=== PATIENT | male | born 1955 | race Caucasian/White ===

== ENCOUNTER → 2017-04-29 | Outpatient (CLI) | payer BC ==
[2014-05-15 10:16] VITALS: BP 123/56
[~2017-04-29] MED LIST: ACTOS45 MG PO; DEPO-TESTOS200 MG/M1 IM; DIOVAN 80MG80 MG PO; GOOD SENSE ASPI81 M1 PO; PLAVIX 75MG TAB75 MG PO; VIAGRA100 MG PO; ZOCOR 40MG40 MG PO
== END ==
LOC: LAB 09:01
DX: Z00.00 Encounter for general adult medical examination without abnormal findings (principal); Z12.5 Encounter for screening for malignant neoplasm of prostate

== ENCOUNTER → 2017-05-18 | Day surgery (SDC) | payer BC ==
[2014-05-15 10:16] VITALS: BP 123/56
== END ==
LOC: MSO 07:18
DX: Z12.11 Encounter for screening for malignant neoplasm of colon (principal); I25.10 Atherosclerotic heart disease of native coronary artery without angina pectoris; Z95.5 Presence of coronary angioplasty implant and graft; Z87.891 Personal history of nicotine dependence; J44.9 Chronic obstructive pulmonary disease, unspecified; E11.8 Type 2 diabetes mellitus with unspecified complications; Z79.84 Long term (current) use of oral hypoglycemic drugs; Z79.82 Long term (current) use of aspirin
CPT/HCPCS: 00810; G0121; J7030

== ENCOUNTER → 2018-03-08 | Outpatient (CLI) | payer MEDICARE, BC ==
[2014-05-15 10:16] VITALS: BP 123/56
[2018-03-08 09:04] LABS: BASO # 0.1 (0.02-0.10); EOS # 0.2 (0.04-0.40); EOS % 3.4 % (0.0-4.0); HEMATOCRIT 44.2 % (42.0-52.0); HEMOGLOBIN 14.6 g/dL (13.5-18.0); MEAN CELL VOLUME 95 fl (78-100); MEAN CORPUSCULAR HEMOGLOBIN 31 pg (27-31); MEAN CORPUSCULAR HGB CONC 33 g/dL (33-37); MONO # 0.4 (0.20-0.80); NEU # 2.8 (1.40-6.50); PLATELET COUNT 197 K/mm3 (130-400); RED BLOOD COUNT 4.66 M/mm3 (4.20-5.60); RED CELL DISTRIBUTION WIDTH 13.1 % (11.5-14.5); WHITE BLOOD COUNT 4.5 K/mm3 (4.8-10.8)
[2018-03-08 09:19] LABS: ALBUMIN 4.3 g/dL (3.5-5.0); BUN/CREATININE RATIO 17.4 (6.0-26.0); POTASSIUM 4.6 mmol/L (3.6-5.0); TOTAL BILIRUBIN 0.3 mg/dL (0.2-1.3); TOTAL PROTEIN 7.6 g/dL (6.3-8.2)
[2018-03-08 11:16] LABS: ERYTHROCYTE SEDIMENTATION RATE 3 mm/hr (0-20); URINE APPEARANCE CLEAR; URINE BILIRUBIN NEGATIVE (NEGATIVE); URINE BLOOD NEGATIVE (NEGATIVE); URINE COLOR YELLOW; URINE GLUCOSE NEGATIVE (NEGATIVE); URINE KETONE NEGATIVE (NEGATIVE); URINE LEUKOCYTE ESTERASE NEGATIVE (NEGATIVE); URINE NITRATE NEGATIVE (NEGATIVE); URINE PROTEIN(semi-quant) NEGATIVE (NEGATIVE); URINE UROBILINOGEN NORMAL (NORMAL); URINE WBC 0-1 /hpf (0-3)
[2018-03-09 00:52] LABS: TESTOSTERONE 419 ng/dL (221-716)
[2018-03-09 01:30] LABS: CREATININE OTHER SOURCE 32 mg/dL (())
== END ==
LOC: LAB 08:36
PROVIDERS: Internal Medicine
DX: Z00.00 Encounter for general adult medical examination without abnormal findings (principal); Z12.5 Encounter for screening for malignant neoplasm of prostate

== ENCOUNTER → 2018-06-01 | Outpatient (CLI) | payer BC ==
[2014-05-15 10:16] VITALS: BP 123/56
== END ==
LOC: RAD 08:05
DX: M19.012 Primary osteoarthritis, left shoulder (principal); M25.511 Pain in right shoulder

== ENCOUNTER → 2018-06-07 | Outpatient (CLI) | payer BC ==
[2014-05-15 10:16] VITALS: BP 123/56
== END ==
LOC: RAD 14:43
DX: S43.431A Superior glenoid labrum lesion of right shoulder, initial encounter (principal); E11.9 Type 2 diabetes mellitus without complications

== ENCOUNTER → 2018-09-24 | Outpatient (CLI) | payer BC ==
[2014-05-15 10:16] VITALS: BP 123/56
[2018-09-24 10:14] LABS: URINE APPEARANCE CLEAR; URINE BILIRUBIN NEGATIVE (NEGATIVE); URINE BLOOD NEGATIVE (NEGATIVE); URINE COLOR YELLOW; URINE GLUCOSE NEGATIVE (NEGATIVE); URINE KETONE NEGATIVE (NEGATIVE); URINE LEUKOCYTE ESTERASE NEGATIVE (NEGATIVE); URINE MUCUS PRESENT (NOT PRESENT); URINE NITRATE NEGATIVE (NEGATIVE); URINE PROTEIN(semi-quant) TRACE mg/dL (NEGATIVE); URINE UROBILINOGEN NORMAL (NORMAL); URINE WBC 0-1 /hpf (0-3)
== END ==
LOC: LAB 08:50
PROVIDERS: Internal Medicine
DX: R30.0 Dysuria (principal)

== ENCOUNTER → 2019-05-02 | Outpatient (CLI) | payer BC ==
[2014-05-15 10:16] VITALS: BP 123/56
[2019-05-02 08:02] LABS: EOS # 0.2 (0.04-0.40); EOS % 3.6 % (0.0-4.0); HEMATOCRIT 44.4 % (42.0-52.0); HEMOGLOBIN 14.7 g/dL (13.5-18.0); LYMPH# 1.2 (1.50-4.00); MEAN CELL VOLUME 96 fl (78-100); MEAN CORPUSCULAR HEMOGLOBIN 32 pg (27-31); MEAN CORPUSCULAR HGB CONC 33 g/dL (33-37); MEAN PLATELET VOLUME 8.9 fl (7.4-10.4); MONO # 0.6 (0.20-0.80); NEU # 3.2 (1.40-6.50); PLATELET COUNT 216 K/mm3 (130-400); RED BLOOD COUNT 4.64 M/mm3 (4.20-5.60); RED CELL DISTRIBUTION WIDTH 12.8 % (11.5-14.5); WHITE BLOOD COUNT 5.2 K/mm3 (4.8-10.8)
[2019-05-02 08:04] LABS: POTASSIUM 5.2 mmol/L (3.5-5.1)
[2019-05-02 08:05] LABS: ALBUMIN 4.2 g/dL (3.4-4.8)
[2019-05-02 08:06] LABS: CALCIUM 9.4 mg/dL (8.3-10.5)
[2019-05-02 08:07] LABS: TOTAL PROTEIN 7.3 g/dL (6.2-8.1)
[2019-05-02 08:09] LABS: TOTAL BILIRUBIN 0.4 mg/dL (0.2-1.2)
[2019-05-02 08:55] LABS: URINE APPEARANCE CLEAR; URINE BILIRUBIN NEGATIVE (NEGATIVE); URINE BLOOD NEGATIVE (NEGATIVE); URINE COLOR YELLOW; URINE GLUCOSE NEGATIVE (NEGATIVE); URINE KETONE NEGATIVE (NEGATIVE); URINE LEUKOCYTE ESTERASE NEGATIVE (NEGATIVE); URINE MUCUS PRESENT (NOT PRESENT); URINE NITRATE NEGATIVE (NEGATIVE); URINE PROTEIN(semi-quant) TRACE mg/dL (NEGATIVE); URINE UROBILINOGEN NORMAL (NORMAL)
[2019-05-02 09:06] LABS: ERYTHROCYTE SEDIMENTATION RATE 5 mm/hr (0-20)
== END ==
LOC: LAB 07:42
PROVIDERS: Internal Medicine
DX: Z00.00 Encounter for general adult medical examination without abnormal findings (principal); Z12.5 Encounter for screening for malignant neoplasm of prostate

== ENCOUNTER → 2020-05-04 | Outpatient (CLI) | payer BC ==
[2014-05-15 10:16] VITALS: BP 123/56
[2020-05-04 08:27] LABS: EOS # 0.2 (0.04-0.40); EOS % 3.6 % (0.0-4.0); HEMATOCRIT 42.2 % (42.0-52.0); LYMPH# 1.1 (1.50-4.00); MEAN CELL VOLUME 96 fl (78-100); MEAN CORPUSCULAR HEMOGLOBIN 32 pg (27-31); MEAN CORPUSCULAR HGB CONC 33 g/dL (33-37); MEAN PLATELET VOLUME 9.1 fl (7.4-10.4); MONO # 0.5 (0.20-0.80); NEU # 2.7 (1.40-6.50); PLATELET COUNT 212 K/mm3 (130-400); RED BLOOD COUNT 4.39 M/mm3 (4.20-5.60); WHITE BLOOD COUNT 4.5 K/mm3 (4.8-10.8)
[2020-05-04 08:28] LABS: POTASSIUM 5.4 mmol/L (3.5-5.1)
[2020-05-04 08:29] LABS: ALBUMIN 4.1 g/dL (3.4-4.8)
[2020-05-04 08:30] LABS: CALCIUM 8.5 mg/dL (8.3-10.5)
[2020-05-04 08:31] LABS: TOTAL PROTEIN 7.3 g/dL (6.2-8.1)
[2020-05-04 08:33] LABS: TOTAL BILIRUBIN 0.4 mg/dL (0.2-1.2)
[2020-05-04 10:43] LABS: ERYTHROCYTE SEDIMENTATION RATE 7 mm/hr (0-20); URINE APPEARANCE CLEAR; URINE COLOR YELLOW
[2020-05-04 10:44] LABS: URINE BILIRUBIN NEGATIVE (NEGATIVE); URINE BLOOD NEGATIVE (NEGATIVE); URINE GLUCOSE NEGATIVE (NEGATIVE); URINE KETONE NEGATIVE (NEGATIVE); URINE LEUKOCYTE ESTERASE NEGATIVE (NEGATIVE); URINE NITRATE NEGATIVE (NEGATIVE); URINE PROTEIN(semi-quant) NEGATIVE (NEGATIVE); URINE UROBILINOGEN NORMAL (NORMAL); URINE WBC 0-1 /hpf (0-3)
== END ==
LOC: LAB 07:33
PROVIDERS: Internal Medicine
DX: Z00.00 Encounter for general adult medical examination without abnormal findings (principal); Z12.5 Encounter for screening for malignant neoplasm of prostate

== ENCOUNTER → 2021-03-21 | Outpatient (CLI) | payer BC ==
[2014-05-15 10:16] VITALS: BP 123/56
[2021-03-21 13:55] LABS: BASO # 0.05 (0.02-0.10); EOS % 1.6 % (0.0-4.0); HEMATOCRIT 42.4 % (42.0-52.0); HEMOGLOBIN 14.2 g/dL (13.5-18.0); MEAN CELL VOLUME 95 fl (78-100); MEAN CORPUSCULAR HEMOGLOBIN 32 pg (27-31); MEAN CORPUSCULAR HGB CONC 34 g/dL (33-37); MEAN PLATELET VOLUME 8.9 fl (7.4-10.4); MONO # 0.55 (0.20-0.80); NEU # 4.19 (1.40-6.50); PLATELET COUNT 218 K/mm3 (130-400); RED BLOOD COUNT 4.45 M/mm3 (4.20-5.60); RED CELL DISTRIBUTION WIDTH 12.1 % (11.5-14.5); WHITE BLOOD COUNT 6.2 K/mm3 (4.8-10.8)
[2021-03-21 14:01] LABS: ALBUMIN 4.3 g/dL (3.4-4.8)
[2021-03-21 14:04] LABS: TOTAL PROTEIN 7.1 g/dL (6.2-8.1)
[2021-03-21 14:06] LABS: TOTAL BILIRUBIN 0.3 mg/dL (0.2-1.2)
[2021-03-21 15:28] LABS: URINE APPEARANCE CLEAR; URINE COLOR YELLOW; URINE PROTEIN(semi-quant) NEGATIVE (NEGATIVE)
[2021-03-21 15:29] LABS: URINE BILIRUBIN NEGATIVE (NEGATIVE); URINE BLOOD NEGATIVE (NEGATIVE); URINE GLUCOSE NEGATIVE (NEGATIVE); URINE KETONE NEGATIVE (NEGATIVE); URINE LEUKOCYTE ESTERASE NEGATIVE (NEGATIVE); URINE NITRATE NEGATIVE (NEGATIVE); URINE UROBILINOGEN NORMAL (NORMAL); URINE WBC 0-1 /hpf (0-3)
[2021-03-22 00:01] LABS: TESTOSTERONE 413 ng/dL (221-716)
== END ==
LOC: LAB 13:33
PROVIDERS: Internal Medicine
DX: Z12.5 Encounter for screening for malignant neoplasm of prostate (principal); E11.9 Type 2 diabetes mellitus without complications; K90.9 Intestinal malabsorption, unspecified; E29.1 Testicular hypofunction

== ENCOUNTER → 2021-04-19 | Outpatient (CLI) | payer BC | LOC: CARDREHAB 07:56 → CARDLAB 07:56 | DX: I25.10 Atherosclerotic heart disease of native coronary artery without angina pectoris (principal) | CPT/HCPCS: A9500 ==

== ENCOUNTER → 2021-04-23 | Outpatient (CLI) | payer BC | LOC: RAD 12:15 → VAS 13:48 | DX: R06.00 Dyspnea, unspecified (principal) ==

== ENCOUNTER → 2021-05-21 | Outpatient (CLI) | payer BC | LOC: RAD 08:37 | DX: J43.9 Emphysema, unspecified (principal); R91.1 Solitary pulmonary nodule | CPT/HCPCS: Q9967 ==

== ENCOUNTER → 2022-04-30 | Outpatient (CLI) | payer BC ==
[2022-04-30 08:36] LABS: URINE WBC 0 /hpf (0-3)
[2022-04-30 09:03] LABS: BASO # 0.06 K/mm3 (0.02-0.10); EOS # 0.21 K/mm3 (0.04-0.40); EOS % 3.5 % (0.0-4.0); HEMATOCRIT 47.3 % (42.0-52.0); HEMOGLOBIN 15.6 g/dL (13.5-18.0); MEAN CELL VOLUME 96 fl (78-100); MEAN CORPUSCULAR HEMOGLOBIN 32 pg (27-31); MEAN CORPUSCULAR HGB CONC 33 g/dL (33-37); MEAN PLATELET VOLUME 8.8 fl (7.4-10.4); MONO # 0.48 K/mm3 (0.20-0.80); NEU # 4.28 K/mm3 (1.40-6.50); PLATELET COUNT 220 K/mm3 (130-400); RED BLOOD COUNT 4.94 M/mm3 (4.20-5.60); RED CELL DISTRIBUTION WIDTH 12.4 % (11.5-14.5)
[2022-04-30 09:29] LABS: PH-URINE 5.5 (5.0 - 8.0); URINE APPEARANCE CLEAR; URINE COLOR YELLOW
[2022-04-30 09:30] LABS: URINE BILIRUBIN NEGATIVE (NEGATIVE); URINE BLOOD NEGATIVE (NEGATIVE); URINE GLUCOSE NEGATIVE (NEGATIVE); URINE KETONE NEGATIVE (NEGATIVE); URINE LEUKOCYTE ESTERASE NEGATIVE (NEGATIVE); URINE NITRATE NEGATIVE (NEGATIVE); URINE PROTEIN(semi-quant) NEGATIVE (NEGATIVE); URINE UROBILINOGEN NORMAL (NORMAL)
[2022-04-30 10:21] LABS: ALBUMIN 4.6 g/dL (3.4-4.8)
[2022-04-30 10:22] LABS: POTASSIUM 4.4 mmol/L (3.5-5.1)
[2022-04-30 10:23] LABS: CALCIUM 9.7 mg/dL (8.3-10.5)
[2022-04-30 10:26] LABS: TOTAL BILIRUBIN 0.4 mg/dL (0.2-1.2)
[2022-04-30 10:52] LABS: ERYTHROCYTE SEDIMENTATION RATE 2 mm/hr (0-20)
[2022-04-30 23:04] LABS: CREATININE OTHER SOURCE 32 mg/dL (())
== END ==
LOC: LAB 08:04
PROVIDERS: Internal Medicine
DX: Z00.00 Encounter for general adult medical examination without abnormal findings (principal); Z12.5 Encounter for screening for malignant neoplasm of prostate; Z12.11 Encounter for screening for malignant neoplasm of colon

== ENCOUNTER → 2022-05-01 | Outpatient (CLI) | payer BC | LOC: LAB 15:00 | DX: Z00.00 Encounter for general adult medical examination without abnormal findings (principal); Z12.5 Encounter for screening for malignant neoplasm of prostate; Z12.11 Encounter for screening for malignant neoplasm of colon ==

== ENCOUNTER → 2023-07-06 | Outpatient (CLI) | payer BC ==
[2023-07-06 11:10] LABS: BASO # 0.03 K/mm3 (0.02-0.10); EOS # 0.12 K/mm3 (0.04-0.40); EOS % 1.7 % (0.0-4.0); HEMATOCRIT 46.9 % (42.0-52.0); HEMOGLOBIN 15.4 g/dL (13.5-18.0); MEAN CELL VOLUME 98 fl (78-100); MEAN CORPUSCULAR HEMOGLOBIN 32 pg (27-31); MEAN CORPUSCULAR HGB CONC 33 g/dL (33-37); MEAN PLATELET VOLUME 8.8 fl (7.4-10.4); MONO # 0.58 K/mm3 (0.20-0.80); NEU # 5.28 K/mm3 (1.40-6.50); PLATELET COUNT 233 K/mm3 (130-400); RED BLOOD COUNT 4.81 M/mm3 (4.20-5.60); WHITE BLOOD COUNT 6.9 K/mm3 (4.8-10.8)
[2023-07-06 11:21] LABS: POTASSIUM 5.1 mmol/L (3.5-5.1)
[2023-07-06 11:22] LABS: ALBUMIN 4.3 g/dL (3.4-4.8)
[2023-07-06 11:23] LABS: CALCIUM 9.9 mg/dL (8.3-10.5)
[2023-07-06 11:24] LABS: TOTAL PROTEIN 7.4 g/dL (6.2-8.1)
[2023-07-06 11:26] LABS: TOTAL BILIRUBIN 0.5 mg/dL (0.2-1.2)
[2023-07-06 11:31] LABS: MAGNESIUM 1.85 mg/dL (1.60-2.60)
== END ==
LOC: LAB 10:54
PROVIDERS: Internal Medicine
DX: E78.5 Hyperlipidemia, unspecified (principal); E11.9 Type 2 diabetes mellitus without complications; I25.10 Atherosclerotic heart disease of native coronary artery without angina pectoris

== ENCOUNTER → 2024-03-23 | Outpatient (CLI) | payer BC ==
[2024-05-12 09:46] LABS: CREATININE OTHER SOURCE 17.1
[2024-05-12 09:47] LABS: HEPATITIS C VIRUS ANTIBODY NON REACTIVE; TESTOSTERONE 408
[2024-05-12 10:09] LABS: ALBUMIN 4.5 g/dL (3.4-4.8); CALCIUM 10.3 mg/dL (8.3-10.5); MAGNESIUM 1.69 mg/dL (1.60-2.60); TOTAL BILIRUBIN 0.3 mg/dL (0.2-1.2); TOTAL PROTEIN 7.7 g/dL (6.2-8.1)
[2024-05-12 10:27] LABS: BASO # 0.02 K/mm3 (0.02-0.10); EOS # 0.18 K/mm3 (0.04-0.40); EOS % 2.8 % (0.0-4.0); HEMATOCRIT 44.2 % (42.0-52.0); HEMOGLOBIN 14.7 g/dL (13.5-18.0); LYMPH# 1.02 K/mm3 (1.50-4.00); MEAN CELL VOLUME 94 fl (78-100); MEAN CORPUSCULAR HEMOGLOBIN 31 pg (27-31); MEAN CORPUSCULAR HGB CONC 33 g/dL (33-37); MEAN PLATELET VOLUME 8.7 fl (7.4-10.4); MONO # 0.58 K/mm3 (0.20-0.80); NEU # 4.66 K/mm3 (1.40-6.50); PLATELET COUNT 232 K/mm3 (130-400); RED BLOOD COUNT 4.69 M/mm3 (4.20-5.60); WHITE BLOOD COUNT 6.5 K/mm3 (4.8-10.8)
[2024-05-14 10:06] LABS: URINE APPEARANCE CLEAR (CLEAR); URINE BILIRUBIN NEGATIVE (NEGATIVE); URINE BLOOD NEGATIVE (NEGATIVE); URINE COLOR YELLOW (YELLOW); URINE GLUCOSE NEGATIVE (NEGATIVE); URINE KETONE NEGATIVE (NEGATIVE); URINE LEUKOCYTE ESTERASE NEGATIVE (NEGATIVE); URINE NITRATE NEGATIVE (NEGATIVE); URINE PROTEIN(semi-quant) NEGATIVE (NEGATIVE); URINE WBC 0-1 /hpf (0-3)
== END ==
LOC: LAB 12:20
PROVIDERS: Internal Medicine
DX: Z12.5 Encounter for screening for malignant neoplasm of prostate (principal); Z12.11 Encounter for screening for malignant neoplasm of colon; Z11.59 Encounter for screening for other viral diseases; I25.10 Atherosclerotic heart disease of native coronary artery without angina pectoris; E11.9 Type 2 diabetes mellitus without complications; E29.1 Testicular hypofunction; K90.9 Intestinal malabsorption, unspecified